=== PATIENT | female | born 1930 | race Caucasian/White ===

== ENCOUNTER 2018-06-05 20:18 | Emergency (ER) | payer MEDICARE, OTHER, MEDICAID ==
[~2018-06-05] VITALS: Ht 157.5 cm; Wt 50.0 kg
[2018-06-05 22:16] VITALS: BP 134/82
== END 2018-06-05 22:20 | disposition home or self-care (01) ==
LOC: ER 20:18
DX: M25.571 Pain in right ankle and joints of right foot (principal); I10 Essential (primary) hypertension; I48.91 Unspecified atrial fibrillation; Z88.6 Allergy status to analgesic agent; Z60.2 Problems related to living alone
CPT/HCPCS: 73610; 99284